=== PATIENT | female | born 1960 | race Caucasian/White ===

== ENCOUNTER → 2016-09-16 | Outpatient (CLI) | payer MEDICARE, BC ==
--- NOTE | 2016-09-18 07:06 | MM ---
Reason for exam: screening (asymptomatic). Last mammogram was performed 2 years and 6 months ago. History: Patient is postmenopausal and is nulliparous. Family history of breast cancer in 2 maternal aunts at age 80. Benign excisional biopsy of the left breast, 1995. Took hormonal contraceptives for 21 years 10 months. Taking estrogen beginning at age 47. Physical Findings: A clinical breast exam by your physician is recommended on an annual basis and results should be correlated with mammographic findings. MG 3D Screening Mammo W/Cad Bilateral CC and MLO view(s) were taken. Prior study comparison: March 30, 2014, bilateral MG screening mammo w CAD. February 12, 2013, bilateral digital screening mammo w/CAD. There are scattered fibroglandular densities. No significant changes when compared with prior studies. ASSESSMENT: Negative, BI-RAD 1 RECOMMENDATION: Routine screening mammogram of both breasts in 1 year. Manage on a clinical basis with regard to patient sensation of left breast fullness.
== END | disposition home or self-care (01) ==
LOC: RADMAMWWP 14:48
PROVIDERS: ATTEND Family Medicine
DX: Z12.31 Encounter for screening mammogram for malignant neoplasm of breast (principal)
CPT/HCPCS: 77063; G0202

== ENCOUNTER 2017-08-29 06:44 | Inpatient (IN) | payer MEDICARE, BC ==
[2017-08-29 06:50] VITALS: RESP 18
[2017-08-29] MEDS ORDERED: PIPERACILLIN-TAZOBACTAM 3.375 GM in DEXTROSE/WATER 1 50ML.BAG IVPB STA (07:52)
[2017-08-29] MEDS ORDERED: metroNIDAZOLE-NS PMX 500 MG in SALINE 1 100ML.BAG IVPB STA (07:54)
[2017-08-29 07:55] LABS: Basophils % (A) 0 %; Eosinophils # (A) 0.1 k/uL (0-0.7); Eosinophils % (A) 1 %; HGB 14.4 gm/dL (11.4-16.0); Lymphocytes # (A) 1.5 k/uL (1.0-4.8); Lymphocytes % (A) 12 %; MCH 29.8 pg (25.0-35.0); MCHC 35.2 g/dL (31.0-37.0); MCV 84.6 fL (80.0-100.0); Mean Platelet Volume 6.9; Monocytes # (A) 1.1 k/uL (0-1.0); Monocytes % (A) 9 %; Neutrophils # (A) 9.7 k/uL (1.3-7.7); Neutrophils % (A) 77 %; Platelet Count 348 k/uL (150-450); RBC 4.85 m/uL (3.80-5.40); RDW 12.9 % (11.5-15.5); WBC 12.6 k/uL (3.8-10.6)
[2017-08-29] MEDS ORDERED: MORPHINE SULFATE 2 MG/ML SYRINGE IVP STA (07:55)
[2017-08-29] MEDS ORDERED: ONDANSETRON 4 MG/2 ML VIAL IVP STA (07:55)
[2017-08-29 08:10] LABS: Appearance,Urine Clear (Clear); Bilirubin,Urine Negative (Negative); Blood,Urine Negative (Negative); Color,Urine Yellow; Glucose,Urine (UA) Negative (Negative); Ketones,Urine Negative (Negative); Leukocyte Esterase,Urine Small (Negative); Mucus,Urine Few /hpf; Nitrite,Urine Negative (Negative); PH, Urine 6.5 (5.0-8.0); Protein,Urine Trace (Negative); RBC,Urine 1 /hpf (0-5); Specific Gravity,Urine 1.016 (1.001-1.035); Squamous Epithelial Cell,Urine 4 /hpf (0-4); Urobilinogen,Urine <2.0 mg/dL (<2.0); WBC,Urine 7 /hpf (0-5)
[2017-08-29 08:11] LABS: ALT 37 U/L (9-52); AST 25 U/L (14-36); Alkaline Phosphatase 81 U/L (38-126); Amylase 39 U/L (30-110); Anion Gap 11 mmol/L; Blood Urea Nitrogen 10 mg/dL (7-17); Carbon Dioxide 27 mmol/L (22-30); Chloride 99 mmol/L (98-107); Glucose 103 mg/dL (74-99); Lipase 26 U/L (23-300); Sodium 137 mmol/L (137-145); Total Bilirubin 0.6 mg/dL (0.2-1.3); Total Protein 6.2 g/dL (6.3-8.2)
[2017-08-29 08:35] LABS: C Reactive Protein 27.2 mg/L (<10.0)
--- NOTE | 2017-08-29 10:32 | CT ---
EXAMINATION TYPE: CT abdomen pelvis w con DATE OF EXAM: 08/29/2017 COMPARISON: 10/24/2015 HISTORY: LLQ pain, history of diverticulitis CT DLP: 1639 mGycm Automated exposure control for dose reduction was used. CONTRAST: CT scan of the abdomen pelvis is performed with IV Contrast, patient injected with 100 mL of Isovue 3 00. FINDINGS- LUNG BASES-lung bases demonstrate linear subsegmental changes most typical atelectasis. Postsurgical change in the mediastinum noted.. LIVER/GB-correlate for mild hepatic steatosis. There is mild central biliary dilation greater within the left lobe. Findings likely secondary to postcholecystectomy changes. PANCREAS- No gross abnormality is seen. SPLEEN- No gross abnormality is seen. Accessory spleen noted. ADRENALS- No gross abnormality is seen. KIDNEYS/BLADDER- no hydronephrosis nephrolithiasis or renal mass. There does appear to be a left rhiannon l vein stent. Cannot exclude a stenosis involving the proximal margin of the stent. This would requir e ultrasound evaluation. Finding is similar to the prior exam. Reduced enhancement proximally could b e related to contrast mixing and phase of imaging. BOWEL-there are few prominent small bowel loops in the upper abdomen. However, there appears to be wa ll thickening involving the sigmoid colon. Small amount of fluid and induration of the adjacent fat a long the left pelvic sidewall. Suspect the findings are most likely in the basis of acute diverticuli tis. A mucosal lesion or mass in the colon is not excluded and could be evaluated direct visualizatio n when clinically appropriate.. LYMPH NODES- No greater than 1cm abdominal or pelvic lymph nodes are appreciated. Shotty lymphadenop athy noted. OSSEOUS STRUCTURES-hypertrophic and degenerative change of the spine noted.. OTHER- aorta of normal caliber with atherosclerotic changes. IMPRESSION- 1. There is wall thickening involving the sigmoid colon with pericolonic inflammatory change to small amount of fluid along the left pelvic sidewall. Findings are most typical of acute diverticulitis. C orrelate clinically to exclude mucosal lesion. 2. A few prominent small bowel loops likely related to localized ileus secondary to the inflammatory changes related to the suspected acute diverticulitis. 3. Left renal stent is stable in position relative the previous exam. Reduced enhancement along the p roximal margin also is stable. This may be related to phase of imaging rather than occlusion but shou ld be correlated clinically.
--- NOTE | 2017-08-29 10:32 | ED ---
General Adult HPI - General Chief complaint: Chest Pain Stated complaint: chest pain, diverticulitis Time Seen by Provider: 08/29/17 07:41 Source: patient Mode of arrival: ambulatory Limitations: no limitations - History of Present Illness Initial comments: 56 years old female with a history of diverticulitis he had left lower quadrant pain going on for 2-3 days she seen her family doctor and was put on a Bactrim and Augmentin that didn't quite help her him a she felt warm she's not sure if she had a fever right now she denies any fever no chills has nausea no vomiting. Is quite in quite excruciating is 10 over 10. Review of system is unremarkable otherwise - Related Data Home Medications Medication Instructions Recorded Confirmed EPINEPHrine (Auto Inject) [Epipen] 0.3 mg IM ONCE PRN 07/14/13 08/29/17 Famotidine 20 mg PO QAM 07/14/13 08/29/17 LORazepam [Ativan] 0.25 mg PO TID PRN 07/14/13 08/29/17 Liothyronine Sodium 25 mcg PO QAM 07/14/13 08/29/17 traMADol HCl [Ultram] 50 mg PO TID PRN 07/14/13 08/29/17 valACYclovir [Valtrex] 500 mg PO DAILY 07/14/13 08/29/17 Cetirizine HCl [Zyrtec] 10 mg PO HS 07/15/13 08/29/17 Albuterol Sulfate [Proair Hfa] 2 puff INHALATION RT-QID PRN 10/23/15 08/29/17 Aspirin EC [Ecotrin Low Dose] 81 mg PO 10/23/15 08/29/17 Azelastine HCl [Astepro] 1 spray EA NOSTRIL BID PRN 10/23/15 08/29/17 Dicyclomine [Bentyl] 10 mg PO TID PRN 10/23/15 08/29/17 Docusate [Colace] 100 mg PO HS 10/23/15 08/29/17 Estriol Vaginal Compounded Cream 1 applic VAGINAL SUWE 10/23/15 08/29/17 Fluconazole [Diflucan] 100 mg PO DAILY PRN 10/23/15 08/29/17 Lisdexamfetamine Dimesylate 30 mg PO QAM 10/23/15 08/29/17 [Vyvanse] Loratadine [Claritin] 10 mg PO MOWEFR 10/23/15 08/29/17 Minocycline HCl [Minocin] 100 mg PO MOWEFR 10/23/15 08/29/17 Psyllium Husk 100% [Metamucil] 6 gm PO HS 10/23/15 08/29/17 Allergies Allergy/AdvReac Type Severity Reaction Status Date / Time Quinolones AdvReac Tendinopath Verified 08/29/17 09:23 y STEROIDS AdvReac Suppressed Uncoded 08/29/17 06:50 immune system due to lyme disease Review of Systems ROS Statement: Those systems with pertinent positive or pertinent negative responses have been documented in the HPI. ROS Other: All systems not noted in ROS Statement are negative. Past Medical History Additional Past Medical History / Comment(s): diverticulitis, lyme disease pacemaker ra, depression anxiety, adrenal fatigue myalgias carditis with sinus node dysfunction Neuropathy bilateral hands and bilateral feet and left side of face. History of Any Multi-Drug Resistant Organisms: None Reported Past Surgical History: Breast Surgery, Cholecystectomy, Ear Surgery Additional Past Surgical History / Comment(s): pacemaker, stapes implant in left ear , ovarian cyst, abscess in belly button, thyroidectomy, tummy tuck, renal stent left side Past Anesthesia/Blood Transfusion Reactions: Postoperative Nausea & Vomiting ( PONV) Past Psychological History: Anxiety, Depression Smoking Status: Never smoker Past Alcohol Use History: Occasional Past Drug Use History: None Reported - Past Family History Father Family Medical History: Cancer, CVA/TIA, Prostate Disorder Additional Family Medical History / Comment(s): Prostate CA, Hip replacement General Exam - General Exam Comments Initial Comments: General: The patient is awake and alert, in no distress, and does not appear acutely ill. Skin: Skin is warm and dry and no rashes or lesions are noted. Eye: Pupils are equal, round and reactive to light, extra-ocular movements are intact; there is normal conjunctiva bilaterally. Ears, nose, mouth and throat: There are moist mucous membranes and no oral lesions. Neck: The neck is supple, there is no tenderness or JVD. Cardiovascular: There is a regular rate and rhythm. No murmur, rub or gallop is appreciated. Respiratory: To auscultation bilateral, no wheezing no rhonchi no distress respiratory goldsmith noticed Gastrointestinal: Very tender in the left lower quadrant area exam consistent with acute diverticulitis. Back: There is no tenderness to palpation in the midline. There is no obvious deformity. Musculoskeletal: Normal ROM, no tenderness, There is no pedal edema. There is no calf tenderness or swelling. No cords were appreciated. Neurological: CN II-XII intact, Cranial nerves III through XII are intact. There are no obvious motor or sensory deficits. Coordination appears grossly intact. Speech is normal. Psychiatric: Cooperative, appropriate mood & affect, normal judgment. Limitations: no limitations Course Vital Signs 08/29/17 08/29/17 06:47 09:10 Temperature 98.2 F Pulse Rate 80 69 Respiratory 18 18 Rate Blood Pressure 127/67 145/77 O2 Sat by Pulse [address] abdomen and pelvis is still pending disposition be done as soon as CT report is available, finally CAT scan report is available and it does confirm acute diverticulitis patient would be admitted to Dr. Barajas service and patient preferred to see Dr. Cervantes EKG Findings - EKG Comments: EKG Findings:: She is atrial paced rhythm no obvious abnormality noticed ventricular rate is 87 FL interval is 1 H2 QRS duration is 84 QT/QTc is 356/420 Medical Decision Making - Lab Data Result diagrams: 08/29/17 07:04 08/29/17 07:04 Lab Results 08/29/17 08/29/17 08/29/17 Range/Units 07:04 07:04 07:04 WBC 12.6 H (3.8-10.6) k/uL RBC 4.85 (3.80-5.40) m/uL Hgb 14.4 (11.4-16.0) gm/dL Hct 41.0 (34.0-46.0) % MCV 84.6 (80.0-100.0) fL MCH 29.8 (25.0-35.0) pg MCHC 35.2 (31.0-37.0) g/dL RDW 12.9 (11.5-15.5) % Plt Count 348 (150-450) k/uL Neutrophils % 77 % Lymphocytes % 12 % Monocytes % 9 % Eosinophils % 1 % Basophils % 0 % Neutrophils # 9.7 H (1.3-7.7) k/uL Lymphocytes # 1.5 (1.0-4.8) k/uL Monocytes # 1.1 H (0-1.0) k/uL Eosinophils # 0.1 (0-0.7) k/uL Basophils # 0.0 (0-0.2) k/uL Sodium 137 (137-145) mmol/L Potassium 4.0 (3.5-5.1) mmol/L Chloride 99 (98-107) mmol/L Carbon Dioxide 27 (22-30) mmol/L Anion Gap 11 mmol/L BUN 10 (7-17) mg/dL Creatinine 0.66 (0.52-1.04) mg/dL Est GFR (CKD-EPI)AfAm >90 (>60 ml/min/1.73 sqM) Est GFR (CKD-EPI)NonAf >90 (>60 ml/min/1.73 sqM) Glucose 103 H (74-99) mg/dL Calcium 9.0 (8.4-10.2) mg/dL Total Bilirubin 0.6 (0.2-1.3) mg/dL AST 25 (14-36) U/L ALT 37 (9-52) U/L Alkaline Phosphatase 81 (38-126) U/L C-Reactive Protein 27.2 H (<10.0) mg/L Total Protein 6.2 L (6.3-8.2) g/dL Albumin 4.0 (3.5-5.0) g/dL Amylase 39 (30-110) U/L Lipase 26 (23-300) U/L Urine Color Yellow Urine Appearance Clear (Clear) Urine pH 6.5 (5.0-8.0) Ur Specific [place] 1.016 (1.001-1.035) Urine Protein Trace H (Negative) Urine Glucose (UA) Negative (Negative) Urine Ketones Negative (Negative) Urine Blood Negative (Negative) Urine Nitrite Negative (Negative) Urine Bilirubin Negative (Negative) Urine Urobilinogen <2.0 (<2.0) mg/dL Ur Leukocyte Esterase Small H (Negative) Urine RBC 1 (0-5) /hpf Urine WBC 7 H (0-5) /hpf Ur Squamous Epith Cells 4 (0-4) /hpf Urine Mucus Few H (None) /hpf Disposition Clinical Impression: Acute diverticulitis Disposition: ADMITTED IP TO THIS [facility] Condition: Good Referrals: Nonstaff,Physician [Primary Care Provider] - 1-2 days
[2017-08-29] MEDS ORDERED: HYDROmorphone 0.5 MG/0.5 ML SYRINGE IVP PRN (10:56)
[2017-08-29] MEDS ORDERED: NALOXONE 0.4 MG/ML 1 ML VIAL IV PRN (10:56)
[2017-08-29] MEDS ORDERED: traMADol 50 MG TAB PO PRN (11:15)
[2017-08-29] MEDS ORDERED: AZELASTINE 137MCG/SPRAY EA NOSTRIL PRN (11:15)
[2017-08-29] MEDS ORDERED: LORazepam 0.5 MG TAB PO PRN (11:15)
[2017-08-29] MEDS ORDERED: ALBUTEROL NEBULIZED 2.5 MG/3 ML INHALATION PRN (11:15)
[2017-08-29] MEDS ORDERED: DICYCLOMINE 10 MG CAP PO PRN (11:15)
[2017-08-29] MEDS ORDERED: LORATADINE 10 MG TAB PO SCH ×2 (11:15→21:00)
[2017-08-29] MEDS ORDERED: FLUCONAZOLE 100 MG TAB PO PRN (11:15)
[2017-08-29] MEDS ORDERED: MINOCYCLINE 50 MG CAP PO SCH (11:45)
[2017-08-29] MEDS: MORPHINE SULFATE 2 MG/ML SYRINGE IVP PRN ×2 (12:47→17:55)
--- NOTE | 2017-08-29 13:26 | P.GSCN ---
<Awa Cabrera - Last Filed: 08/29/17 12:58> History of Present Illness Consult date: 08/29/17 History of present illness: 56-year-old female presented to the emergency room with a chief complaint of left lower quadrant abdominal pain "I have a history of diverticulitis this was the worst flareup with increased left lower quadrant abdominal pain that I have ever experienced". Patient reports that she saw a colon specialist at [facility] that she is been following for her diverticulosis disease for the last several years . She states that she's been told repeatedly that she needs to have bowel surgery to address her diverticulitis flareups . According to the patient [address] farris colon Specialist apparently attempted to do a colonoscopy but it was incomplete due to the patient "dropped my blood pressure became dizzy and lightheaded" patient states she has been told that she would need cardiac clearance and Lyme disease specialist to see her prior to having any surgical procedures done. Patient states she was diagnosed 10 years ago in [place] with Lyme disease has been following line disease specialist [facility]. According to the patient the colon specialist at [facility] has been working the patient up in anticipation of doing surgery for her acute diverticulitis patient states the colon specialist that [facility] told the patient if she had a flareup she was to take Augmentin and Bentyl for a flareup. Patient states she was seen in [address] Cervantes for an abscess on her belly button". According to the patient last colonoscopy was done January [address] Robson Beltran polypectomy. Patient does have a past medical history Lyme disease which resulted in cardiac disease, depression anxiety disorder, pacemaker, neuropathy, diverticular disease with reoccurring acute on chronic sigmoid diverticulitis, and chronic pain. Prior left renal stent Patient describes the pain as a very sharp localized left lower quadrant abdominal pain came on suddenly. Computed tomography scan of the abdomen pelvis obtained in the emergency room he reviewing the medical records indicate wall thickening involving the sigmoid colon small amount of fluid findings are typical of acute diverticulitis. White count on admission 12.6. AST ALT and total bili not elevated. Electrolytes within normal limits. Hemoglobin 14.4. Afebrile temp is 98.7 Review of Systems Essentially unremarkable except as mentioned in the present illness Past Medical History Additional Past Medical History / Comment(s): diverticulitis, lyme disease pacemaker ra, depression anxiety, adrenal fatigue myalgias carditis with sinus node dysfunction Neuropathy bilateral hands and bilateral feet and left side of face. History of Any Multi-Drug Resistant Organisms: None Reported Past Surgical History: Breast Surgery, Cholecystectomy, Ear Surgery Additional Past Surgical History / Comment(s): pacemaker, stapes implant in left ear , ovarian cyst, abscess in belly button, thyroidectomy, tummy tuck, renal stent left side Past Anesthesia/Blood Transfusion Reactions: Postoperative Nausea & Vomiting ( PONV) Past Psychological History: Anxiety, Depression Smoking Status: Never smoker Past Alcohol Use History: Occasional Past Drug Use History: None Reported - Past Family History Father Family Medical History: Cancer, CVA/TIA, Prostate Disorder Additional Family Medical History / Comment(s): Prostate CA, Hip replacement Medications and Allergies Home Medications Medication Instructions Recorded Confirmed Type EPINEPHrine (Auto Inject) [Epipen] 0.3 mg IM ONCE PRN 07/14/13 08/29/17 History Famotidine 20 mg PO QAM 07/14/13 08/29/17 History LORazepam [Ativan] 0.25 mg PO TID PRN 07/14/13 08/29/17 History Liothyronine Sodium 25 mcg PO QAM 07/14/13 08/29/17 History traMADol HCl [Ultram] 50 mg PO TID PRN 07/14/13 08/29/17 History valACYclovir [Valtrex] 500 mg PO DAILY 07/14/13 08/29/17 History Cetirizine HCl [Zyrtec] 10 mg PO HS 07/15/13 08/29/17 History Albuterol Sulfate [Proair Hfa] 2 puff INHALATION RT-QID PRN 10/23/15 08/29/17 History Aspirin EC [Ecotrin Low Dose] 81 mg PO HS 10/23/15 08/29/17 History Azelastine HCl [Astepro] 1 spray EA NOSTRIL BID PRN 10/23/15 08/29/17 History Dicyclomine [Bentyl] 10 mg PO TID PRN 10/23/15 08/29/17 History Docusate [Colace] 100 mg PO HS 10/23/15 08/29/17 History Estriol Vaginal Compounded Cream 1 applic VAGINAL SUWE 10/23/15 08/29/17 History Fluconazole [Diflucan] 100 mg PO DAILY PRN 10/23/15 08/29/17 History Lisdexamfetamine Dimesylate 30 mg PO QAM 10/23/15 08/29/17 History [Vyvanse] Loratadine [Claritin] 10 mg PO MOWEFR 10/23/15 08/29/17 History Minocycline HCl [Minocin] 100 mg PO MOWEFR 10/23/15 08/29/17 History Psyllium Husk 100% [Metamucil] 6 gm PO HS 10/23/15 08/29/17 History Allergies Allergy/AdvReac Type Severity Reaction Status Date / Time Quinolones AdvReac Tendinopath Verified 08/29/17 09:23 y STEROIDS AdvReac Suppressed Uncoded 08/29/17 06:50 immune system due to lyme disease Surgical - Exam Vital Signs Temp Pulse Resp BP Pulse Ox 98.2 F 80 18 127/67 98 08/29/17 06:47 08/29/17 06:47 08/29/17 06:47 08/29/17 06:47 08/29/17 06:47 GENERAL APPEARANCE: 56-year-old female teary-eyed states anxious most of her health care for her colon Diverticulosis disease has been at [facility] reports pain medication has decreased the left lower quadrant abdominal pain but continues to persist VITAL SIGNS: HEENT: Head is normocephalic and atraumatic. Pupils are equal and reactive. The nares are patent. Oropharynx is clear without lesions. NECK: Supple without lymphadenopathy. Traches midline. HEART: S1, S2. Regular rate and rhythm. No murmur noted denying chest pain heart rate in the 70s to 80s LUNGS: No crackles or wheezes are heard. Adequate air movement bilaterally room air sats 9900% ABDOMEN: Soft, diffuse tenderness left lower quadrant nausea sensation no active emesis nondistended with good bowel sounds. No peritoneal signs. No palpable organomegaly or masses. EXTREMITIES: Normal skin color and turgor. No cyanosis, rash, ulceration, clubbing or edema. Radial pedal pulses are 2/4 bilaterally. NEUROLOGICAL: No focal deficits. Strength and sensation are grossly intact. Results - Labs 08/29/17 07:04 08/29/17 07:04 Abnormal Lab Results - Last 24 Hours (Table) 0608/29/17 08/29/17 Range/Units 07:04 07:04 07:04 WBC 12.6 H (3.8-10.6) k/uL Neutrophils # 9.7 H (1.3-7.7) k/uL Monocytes # 1.1 H (0-1.0) k/uL Glucose 103 H (74-99) mg/dL C-Reactive Protein 27.2 H (<10.0) mg/L Total Protein 6.2 L (6.3-8.2) g/dL Urine Protein Trace H (Negative) Ur Leukocyte Esterase Small H (Negative) Urine WBC 7 H (0-5) /hpf Urine Mucus Few H (None) /hpf Diabetes panel 08/29/17 Range/Units 07:04 Sodium 137 (137-145) mmol/L Potassium 4.0 (3.5-5.1) mmol/L Chloride 99 (98-107) mmol/L Carbon Dioxide 27 (22-30) mmol/L BUN 10 (7-17) mg/dL Creatinine 0.66 (0.52-1.04) mg/dL Glucose 103 H (74-99) mg/dL Calcium 9.0 (8.4-10.2) mg/dL AST 25 (14-36) U/L ALT 37 (9-52) U/L Alkaline Phosphatase 81 (38-126) U/L Total Protein 6.2 L (6.3-8.2) g/dL Albumin 4.0 (3.5-5.0) g/dL Calcium panel 08/29/17 Range/Units 07:04 Calcium 9.0 (8.4-10.2) mg/dL Albumin 4.0 (3.5-5.0) g/dL Pituitary panel 08/29/17 Range/Units 07:04 Sodium 137 (137-145) mmol/L Potassium 4.0 (3.5-5.1) mmol/L Chloride 99 (98-107) mmol/L Carbon Dioxide 27 (22-30) mmol/L BUN 10 (7-17) mg/dL Creatinine 0.66 (0.52-1.04) mg/dL Glucose 103 H (74-99) mg/dL Calcium 9.0 (8.4-10.2) mg/dL Adrenal panel 06/22/18 Range/Units 07:04 Sodium 137 (137-145) mmol/L Potassium 4.0 (3.5-5.1) mmol/L Chloride 99 (98-107) mmol/L Carbon Dioxide 27 (22-30) mmol/L BUN 10 (7-17) mg/dL Creatinine 0.66 (0.52-1.04) mg/dL Glucose 103 H (74-99) mg/dL Calcium 9.0 (8.4-10.2) mg/dL Total Bilirubin 0.6 (0.2-1.3) mg/dL AST 25 (14-36) U/L ALT 37 (9-52) U/L Alkaline Phosphatase 81 (38-126) U/L Total Protein 6.2 L (6.3-8.2) g/dL Albumin 4.0 (3.5-5.0) g/dL Assessment and Plan Assessment: Impression Present on admission symptomatic left lower quadrant abdominal pain suspect due to acute diverticulitis exacerbation Anxiety depressive disorder History of Lyme's disease diagnosed 10 years prior resulting in cardiac disease Acute on chronic recurrent sigmoid diverticulitis Chronic Lyme disease Present on admission leukocytosis suspect reactive Computed tomography scan abdomen and pelvis report reviewed indicate wall thickening involving the sigmoid colon suspect likely due to acute diverticulitis Plan Recommend the patient be transferred to [facility] higher level of care needed to address acute diverticulitis in a patient with Lyme disease resulting in cardiac issues Pain control IV Flagyl as ordered IV hydration Defer to the attending to arrange transfer to the tertiary center as appropriate case assembler to pursue transfer Surgical consultation note dictated for Dr. Asher The above impression and plan of care have been discussed and directed by signing physician. Awa Cabrera nurse practitioner acting as scribe for signing physician. <Rhonda Asher - Last Filed: 08/29/17 21:40> Past Medical History - Past Family History Father Family Medical History: Cancer, CVA/TIA, Prostate Disorder Additional Family Medical History / Comment(s): Prostate CA, Hip replacement Mother Family Medical History: Cancer Additional Family Medical History / Comment(s): Mother has multiple myeloma and is in hospice care at home. Surgical - Exam Vital Signs Temp Pulse Resp BP Pulse Ox 98.2 F 80 18 127/67 98 08/29/17 06:47 08/29/17 06:47 08/29/17 06:47 08/29/17 06:47 08/29/17 06:47 Results - Labs 08/29/17 07:04 08/29/17 07:04 Abnormal Lab Results - Last 24 Hours (Table) 08/29/17 08/29/17 08/29/17 Range/Units 07:04 07:04 07:04 WBC 12.6 H (3.8-10.6) k/uL Neutrophils # 9.7 H (1.3-7.7) k/uL Monocytes # 1.1 H (0-1.0) k/uL Glucose 103 H (74-99) mg/dL C-Reactive Protein 27.2 H (<10.0) mg/L Total Protein 6.2 L (6.3-8.2) g/dL Urine Protein Trace H (Negative) Ur Leukocyte Esterase Small H (Negative) Urine WBC 7 H (0-5) /hpf Urine Mucus Few H (None) /hpf Diabetes panel 08/29/17 Range/Units 07:04 Sodium 137 (137-145) mmol/L Potassium 4.0 (3.5-5.1) mmol/L Chloride 99 (98-107) mmol/L Carbon Dioxide 27 (22-30) mmol/L BUN 10 (7-17) mg/dL Creatinine 0.66 (0.52-1.04) mg/dL Glucose 103 H (74-99) mg/dL Calcium 9.0 (8.4-10.2) mg/dL AST 25 (14-36) U/L ALT 37 (9-52) U/L Alkaline Phosphatase 81 (38-126) U/L Total Protein 6.2 L (6.3-8.2) g/dL Albumin 4.0 (3.5-5.0) g/dL Calcium panel 08/29/17 Range/Units 07:04 Calcium 9.0 (8.4-10.2) mg/dL Albumin 4.0 (3.5-5.0) g/dL Pituitary panel 08/29/17 Range/Units 07:04 Sodium 137 (137-145) mmol/L Potassium 4.0 (3.5-5.1) mmol/L Chloride 99 (98-107) mmol/L Carbon Dioxide 27 (22-30) mmol/L BUN 10 (7-17) mg/dL Creatinine 0.66 (0.52-1.04) mg/dL Glucose 103 H (74-99) mg/dL Calcium 9.0 (8.4-10.2) mg/dL Adrenal panel 08/29/17 Range/Units 07:04 Sodium 137 (137-145) mmol/L Potassium 4.0 (3.5-5.1) mmol/L Chloride 99 (98-107) mmol/L Carbon Dioxide 27 (22-30) mmol/L BUN 10 (7-17) mg/dL Creatinine 0.66 (0.52-1.04) mg/dL Glucose 103 H (74-99) mg/dL Calcium 9.0 (8.4-10.2) mg/dL Total Bilirubin 0.6 (0.2-1.3) mg/dL AST 25 (14-36) U/L ALT 37 (9-52) U/L Alkaline Phosphatase 81 (38-126) U/L Total Protein 6.2 L (6.3-8.2) g/dL Albumin 4.0 (3.5-5.0) g/dL
[2017-08-29 14:49] VITALS: BMI 29.0
[2017-08-29 14:54] VITALS: BP 126/75; PULSE 86; TEMP 97.7
[2017-08-29] MEDS ORDERED: metroNIDAZOLE-NS PMX 500 MG in SALINE 1 100ML.BAG IVPB SCH (16:00)
[2017-08-29] MEDS ORDERED: ASPIRIN 81 MG PO SCH (21:00)
[2017-08-29] MEDS ORDERED: PSYLLIUM HUSK 100% 6 GM PACKET PO SCH (21:00)
[2017-08-29] MEDS ORDERED: DOCUSATE 100 MG CAP PO SCH (21:00)
--- NOTE | 2017-08-29 22:14 | P.HPIM ---
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 "I have a history of diverticulitis this was the worst flareup with increased left lower quadrant abdominal pain that I have ever experienced". Patient reports that she saw a colon specialist at [facility] that she is been following for her diverticulosis disease for the last several years . She states that she's been told repeatedly that she needs to have bowel surgery to address her diverticulitis flareups . According to the patient [address] farris colon Specialist apparently attempted to do a colonoscopy but it was incomplete due to the patient "dropped my blood pressure became dizzy and lightheaded" patient states she has been told that she would need cardiac clearance and Lyme disease specialist to see her prior to having any surgical procedures done. Patient states she was diagnosed 10 years ago in [place] with Lyme disease has been following line disease specialist [facility]. According to the patient the colon specialist at [facility] has been working the patient up in anticipation of doing surgery for her acute diverticulitis patient states the colon specialist that [facility] told the patient if she had a flareup she was to take Augmentin and Bentyl for a flareup. Patient states she was seen in [address] Cervantes for an abscess on her belly button". According to the patient last colonoscopy was done January [address] Robson Beltran polypectomy. Computed tomography scan of the abdomen pelvis obtained in the emergency room he reviewing the medical records indicate wall thickening involving the sigmoid colon small amount of fluid findings are typical of acute diverticulitis. White count on admission 12.6. AST ALT and total bili not elevated. Electrolytes within normal limits. Hemoglobin 14.4. Afebrile temp is 98.7 Review of Systems Constitutional: Patient denies any fever or chills . No generalized weakness or weight loss. Abdomen: Patient denied nausea vomiting and diarrhea it patient does have left lower quadrant abdominal pain. Cardiovascular: Patient denies any chest pain or short of breath no palpitations. Respiratory: patient denied any cough is from production. No shortness of breath Neurologic: Patient denied any numbness or tingling headache. Musculoskeletal: Patient denies any complaints of joint swelling or deformity. Skin: Negative Psychiatric: Negative Endocrine: No heat or cold intolerance. No recent weight gain. Genitourinary: No dysuria or hematuria. All other 14 point ROS negative except the above Past Medical History Additional Past Medical History / Comment(s): diverticulitis, lyme disease pacemaker ra, depression anxiety, adrenal fatigue myalgias carditis with sinus node dysfunction Neuropathy bilateral hands and bilateral feet and left side of face. History of Any Multi-Drug Resistant Organisms: None Reported Past Surgical History: Breast Surgery, Cholecystectomy, Ear Surgery Additional Past Surgical History / Comment(s): pacemaker, stapes implant in left ear , ovarian cyst, abscess in belly button, thyroidectomy, tummy tuck, renal stent left side Past Anesthesia/Blood Transfusion Reactions: Postoperative Nausea & Vomiting ( PONV) Past Psychological History: Anxiety, Depression Smoking Status: Never smoker Past Alcohol Use History: Occasional Past Drug Use History: None Reported - Past Family History Father Family Medical History: Cancer, CVA/TIA, Prostate Disorder Additional Family Medical History / Comment(s): Prostate CA, Hip replacement Mother Family Medical History: Cancer Additional Family Medical History / Comment(s): Mother has multiple myeloma and is in hospice care at home. Medications and Allergies Home Medications Medication Instructions Recorded Confirmed Type EPINEPHrine (Auto Inject) [Epipen] 0.3 mg IM ONCE PRN 07/14/13 08/29/17 History Famotidine 20 mg PO QAM 07/14/13 08/29/17 History LORazepam [Ativan] 0.25 mg PO TID PRN 07/14/13 08/29/17 History Liothyronine Sodium 25 mcg PO QAM 07/14/13 08/29/17 History traMADol HCl [Ultram] 50 mg PO TID PRN 07/14/13 08/29/17 History valACYclovir [Valtrex] 500 mg PO DAILY 07/14/13 08/29/17 History Cetirizine HCl [Zyrtec] 10 mg PO HS 07/15/13 08/29/17 History Albuterol Sulfate [Proair Hfa] 2 puff INHALATION RT-QID PRN 10/23/15 08/29/17 History Aspirin EC [Ecotrin Low Dose] 81 mg PO HS 10/23/15 08/29/17 History Azelastine HCl [Astepro] 1 spray EA NOSTRIL BID PRN 10/23/15 08/29/17 History Dicyclomine [Bentyl] 10 mg PO TID PRN 10/23/15 08/29/17 History Docusate [Colace] 100 mg PO HS 10/23/15 08/29/17 History Estriol Vaginal Compounded Cream 1 applic VAGINAL SUWE 10/23/15 08/29/17 History Fluconazole [Diflucan] 100 mg PO DAILY PRN 10/23/15 08/29/17 History Lisdexamfetamine Dimesylate 30 mg PO QAM 10/23/15 08/29/17 History [Vyvanse] Loratadine [Claritin] 10 mg PO MOWEFR 10/23/15 08/29/17 History Minocycline HCl [Minocin] 100 mg PO MOWEFR 10/23/15 08/29/17 History Psyllium Husk 100% [Metamucil] 6 gm PO HS 10/23/15 08/29/17 History Allergies Allergy/AdvReac Type Severity Reaction Status Date / Time Quinolones AdvReac Tendinopath Verified 08/29/17 09:23 y STEROIDS AdvReac Suppressed Uncoded 08/29/17 06:50 immune system due to lyme disease Physical Exam Vitals: Vital Signs Temp Pulse Pulse Resp BP BP Pulse Ox 08/29/17 14:13 97.7 F 86 18 126/75 98 08/29/17 12:04 97.9 F 90 18 121/68 100 08/29/17 11:49 98.7 F 81 18 139/61 100 08/29/17 09:10 69 18 145/77 99 08/29/17 06:47 98.2 F 80 18 127/67 98 Intake and Output 08/28/17 08/29/17 08/29/17 22:59 06:59 14:59 Intake Total 480 Balance 480 Intake: Oral 480 Other: # Voids 1 # Bowel Movements 0 Weight 81.647 kg 81.647 kg PHYSICAL EXAMINATION: Patient is lying in the bed comfortably, mild distress, awake alert and oriented.. HEENT: Normocephalic. Neck is supple. Pupils reactive. Nostrils clear. Oral cavity is moist. Ears reveal no drainage. Neck reveals no JVD, carotid bruits, or thyromegaly. CHEST EXAMINATION: Trachea is central. Symmetrical expansion. Lung ackerman clear to auscultation and percussion. CARDIAC: Normal S1, S2 with no gallops. No murmurs ABDOMEN: Soft. Left lower quadrant abdominal tenderness. No guarding no rigidity. Bowel sounds normal. No organomegaly. No abdominal bruits. Extremities: reveal no edema. No clubbing or cyanosis Neurologically awake, alert, oriented x3 with well-coordinated movements. No focal deficits noted Skin: No rash or skin lesions. Psychiatric: Coperative. Nonsuicidal Musculoskeletal: No joint swelling or deformity. Normal range of motion. Results CBC & Chem 7: 08/29/17 07:04 08/29/17 07:04 Labs: Abnormal Lab Results - Last 24 Hours (Table) 08/29/17 08/29/17 08/29/17 Range/Units 07:04 07:04 07:04 WBC 12.6 H (3.8-10.6) k/uL Neutrophils # 9.7 H (1.3-7.7) k/uL Monocytes # 1.1 H (0-1.0) k/uL Glucose 103 H (74-99) mg/dL C-Reactive Protein 27.2 H (<10.0) mg/L Total Protein 6.2 L (6.3-8.2) g/dL Urine Protein Trace H (Negative) Ur Leukocyte Esterase Small H (Negative) Urine WBC 7 H (0-5) /hpf Urine Mucus Few H (None) /hpf Thrombosis Risk Factor Assmnt - DVT/VTE Prophylaxis DVT/VTE Prophylaxis: Pharmacologic Prophylaxis ordered - Choose All That Apply Any of the Below Risk Factors Present?: Yes Each Factor Represents 1 point: Age 41-60 years, Obesity (BMI >25) Other Risk Factors: No Other congenital or acquired thrombophilia - If yes, enter type in comment: No Thrombosis Risk Factor Assessment Total Risk Factor Score: 2 Thrombosis Risk Factor Assessment Level: Low Risk Assessment and Plan Assessment: Acute diverticulitis with complaints of left lower quadrant pain Previous history of colonoscopy with polypectomy and abscess in the belly button I&D History of Lyme's disease/carditis with sinus node dysfunction status post pacemaker placement about 9 years ago Anxiety and depression Left renal Stent DVT prophylaxis Plan: Patient was started on antibiotics in the form of ceftriaxone and Flagyl. Continued on IV fluids and pain management. Patient was seen by general surgery and patient will need cardiology clearance prior to surgery. Patient follows with cardiology clinic at [place] for several years. Currently patient is following at [facility] and was also seen by colorectal surgery and has been planning for colonoscopy a week ago. Due to complexity of the surgery and previous abdominal surgeries patient will be transferred to tertiary care facility for further management. Discussed with [facility] transfer team who accepted the patient. Patient will be transferred once bed is available. Time with Patient: Greater than 30
--- NOTE | 2017-08-29 22:15 | P.DS ---
Providers Date of admission: 08/29/17 10:56 Expected date of discharge: 08/29/17 Attending physician: [place] Consults: 08/29/17 10:56 Consult Physician Stat Consulting Provider: Kartik Cervantes Reason/Comments: acute divertilitis Do you want consulting provider notified?: Yes Primary care physician: Physician Nonstaff Hospital Course: Discharge diagnosis Acute diverticulitis with complaints of left lower quadrant pain Previous history of colonoscopy with polypectomy and abscess in the belly button I&D History of Lyme's disease/carditis with sinus node dysfunction status post pacemaker placement about 9 years ago Anxiety and depression Left renal Stent DVT prophylaxis Hospital course Patient is a 56-year-old female with a known history of diverticulitis, 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 "I have a history of diverticulitis this was the worst flareup with increased left lower quadrant abdominal pain that I have ever experienced". Patient reports that she saw a colon specialist at [facility] that she is been following for her diverticulosis disease for the last several years . She states that she's been told repeatedly that she needs to have bowel surgery to address her diverticulitis flareups . According to the patient [address] farris colon Specialist apparently attempted to do a colonoscopy but it was incomplete due to the patient "dropped my blood pressure became dizzy and lightheaded" patient states she has been told that she would need cardiac clearance and Lyme disease specialist to see her prior to having any surgical procedures done. Patient states she was diagnosed 10 years ago in [place] with Lyme disease has been following line disease specialist [facility]. According to the patient the colon specialist at [facility] has been working the patient up in anticipation of doing surgery for her acute diverticulitis patient states the colon specialist that [facility] told the patient if she had a flareup she was to take Augmentin and Bentyl for a flareup. Patient states she was seen in [address] Cervantes for an abscess on her belly button". According to the patient last colonoscopy was done January [address] Robson Beltran polypectomy. Computed tomography scan of the abdomen pelvis obtained in the emergency room he reviewing the medical records indicate wall thickening involving the sigmoid colon small amount of fluid findings are typical of acute diverticulitis. White count on admission 12.6. AST ALT and total bili not elevated. Electrolytes within normal limits. Hemoglobin 14.4. Afebrile temp is 98.7 Plan: Patient was started on antibiotics in the form of ceftriaxone and Flagyl. Continued on IV fluids and pain management. Patient was seen by general surgery and patient will need cardiology clearance prior to surgery. Patient follows with cardiology clinic at [place] for several years. Currently patient is following at [facility] and was also seen by colorectal surgery and has been planning for colonoscopy a week ago. Due to complexity of the surgery and previous abdominal surgeries patient will be transferred to tertiary care facility for further management. Discussed with [facility] transfer team who accepted the patient. Patient was transferred to [facility] in stable condition.. Discharge physical examination was done and vitals reviewed Total time taken greater than 35 minutes including 18 minutes for counseling and coordination of care. Patient Condition at Discharge: Good Plan - Discharge Summary Discharge Rx Participant: No New Discharge Prescriptions: No Action Liothyronine Sodium 25 mcg PO QAM valACYclovir [Valtrex] 500 mg PO DAILY LORazepam [Ativan] 0.25 mg PO TID PRN PRN Reason: Anxiety traMADol HCl [Ultram] 50 mg PO TID PRN PRN Reason: Pain Famotidine 20 mg PO QAM EPINEPHrine (Auto Inject) [Epipen] 0.3 mg IM ONCE PRN PRN Reason: Anaphylaxis Cetirizine HCl [Zyrtec] 10 mg PO HS Dicyclomine [Bentyl] 10 mg PO TID PRN PRN Reason: diverticulitis Albuterol Sulfate [Proair Hfa] 2 puff INHALATION RT-QID PRN PRN Reason: Shortness Of Breath Aspirin EC [Ecotrin Low Dose] 81 mg PO HS Azelastine HCl [Astepro] 1 spray EA NOSTRIL BID PRN PRN Reason: Allergy Symptoms Docusate [Colace] 100 mg PO HS Estriol Vaginal Compounded Cream 1 applic VAGINAL SUWE Fluconazole [Diflucan] 100 mg PO DAILY PRN PRN Reason: yeast infection w/abx Lisdexamfetamine Dimesylate [Vyvanse] 30 mg PO QAM Loratadine [Claritin] 10 mg PO MOWEFR Minocycline HCl [Minocin] 100 mg PO MOWEFR Psyllium Husk 100% [Metamucil] 6 gm PO HS Discharge Medication List EPINEPHrine (Auto Inject) [Epipen] 0.3 mg IM ONCE PRN 07/14/13 [History] Famotidine 20 mg PO QAM 07/14/13 [History] LORazepam [Ativan] 0.25 mg PO TID PRN 07/14/13 [History] Liothyronine Sodium 25 mcg PO QAM 07/14/13 [History] traMADol HCl [Ultram] 50 mg PO TID PRN 07/14/13 [History] valACYclovir [Valtrex] 500 mg PO DAILY 07/14/13 [History] Cetirizine HCl [Zyrtec] 10 mg PO HS 07/15/13 [History] Albuterol Sulfate [Proair Hfa] 2 puff INHALATION RT-QID PRN 10/23/15 [History] Aspirin EC [Ecotrin Low Dose] 81 mg PO HS 10/23/15 [History] Azelastine HCl [Astepro] 1 spray EA NOSTRIL BID PRN 10/23/15 [History] Dicyclomine [Bentyl] 10 mg PO TID PRN 10/23/15 [History] Docusate [Colace] 100 mg PO HS 10/23/15 [History] Estriol Vaginal Compounded Cream 1 applic VAGINAL SUWE 10/23/15 [History] Fluconazole [Diflucan] 100 mg PO DAILY PRN 10/23/15 [History] Lisdexamfetamine Dimesylate [Vyvanse] 30 mg PO QAM 10/23/15 [History] Loratadine [Claritin] 10 mg PO MOWEFR 10/23/15 [History] Minocycline HCl [Minocin] 100 mg PO MOWEFR 10/23/15 [History] Psyllium Husk 100% [Metamucil] 6 gm PO HS 10/23/15 [History] Follow up Appointment(s)/Referral(s): Nonstaff,Physician [Primary Care Provider] - 1-2 days Activity/Diet/Wound Care/Special Instructions: client does not need telemetry at [facility] Discharge Disposition: OTHER INSTITUTION NOT DEFINED
[2017-08-30] MEDS ORDERED: LIOTHYRONINE SODIUM 5 MCG TAB PO SCH (06:30)
[2017-08-30] MEDS ORDERED: cefTRIAXone IN SWFI 2,000 MG/20 ML SYRINGE IVP SCH (09:00)
[2017-08-30] MEDS ORDERED: FAMOTIDINE 20 MG TAB PO SCH (09:00)
[2017-08-30] MEDS ORDERED: valACYclovir 500 MG TAB PO SCH (09:00)
[2017-08-30] MEDS ORDERED: Lisdexamfetamine Dimesylate [Vyvanse] 30 MG PO SCH (09:00)
== END 2017-08-29 18:25 | disposition short-term general hospital (02) | DRG 392 ==
LOC: EC 06:44 → 4MS4W 10:56
PROVIDERS: ADMIT Hospitalist; ATTEND Hospitalist
DX: K57.32 Diverticulitis of large intestine without perforation or abscess without bleeding (principal); A69.20 Lyme disease, unspecified; F41.9 Anxiety disorder, unspecified; F32.9 Major depressive disorder, single episode, unspecified; E89.0 Postprocedural hypothyroidism; D72.829 Elevated white blood cell count, unspecified; M06.9 Rheumatoid arthritis, unspecified; G62.9 Polyneuropathy, unspecified; Z95.0 Presence of cardiac pacemaker; G89.29 Other chronic pain; Z79.82 Long term (current) use of aspirin; Z79.899 Other long term (current) drug therapy; Z88.8 Allergy status to other drugs, medicaments and biological substances; Z90.49 Acquired absence of other specified parts of digestive tract; Z86.010 Personal history of colon polyps; Z96.29 Presence of other otological and audiological implants; Z86.79 Personal history of other diseases of the circulatory system; Z80.7 Family history of other malignant neoplasms of lymphoid, hematopoietic and related tissues; Z82.3 Family history of stroke; Z84.2 Family history of other diseases of the genitourinary system
CPT/HCPCS: 36415; 74177; 80053; 81001; 82150; 83690; 85025; 86140; 93005; 96365; 96366; 96368; 96375; 99285

== ENCOUNTER → 2017-10-15 | Outpatient (CLI) | payer MEDICARE, BC ==
--- NOTE | 2017-10-21 17:20 | MM ---
Reason for exam: screening (asymptomatic). Last mammogram was performed 1 year and 1 month ago. History: Patient is postmenopausal and is nulliparous. Family history of breast cancer in 2 maternal aunts at age 80. Benign excisional biopsy of the left breast, 1995. Took hormonal contraceptives for 21 years 10 months. Taking estrogen beginning at age 47. MG 3D Screening Mammo W/Cad Bilateral CC and MLO view(s) were taken. Prior study comparison: September 16, 2016, bilateral MG 3d screening mammo w/cad. March 30, 2014, bilateral MG screening mammo w CAD. There are scattered fibroglandular densities. No suspicious abnormality. Post operative changes on the left breast. ASSESSMENT: Benign, BI-RAD 2 RECOMMENDATION: Routine screening mammogram of both breasts in 1 year.
== END | disposition home or self-care (01) ==
LOC: RADMAMWWP 13:26
PROVIDERS: ATTEND Family Medicine
DX: Z12.31 Encounter for screening mammogram for malignant neoplasm of breast (principal)
CPT/HCPCS: 77063; 77067

== ENCOUNTER → 2018-08-28 | Outpatient (CLI) | payer MEDICARE, BC ==
--- NOTE | 2018-08-28 09:57 | US ---
EXAMINATION TYPE: US abdomen APPY DATE OF EXAM: 08/28/2018 COMPARISON: NONE CLINICAL HISTORY: R19.09 Anterior abdominal wall mass. Patient states for the past 3 months she has h ad a large, hard palpable area of swelling in her lower abdomen just left of her belly button, area b ecomes more prominent while she is standing. APPENDIX Appendix not seen with certainty at this time, RLQ appears wnl. Scanned at patient's area of concern (pt standing during exam): no solid mass or fluid collection see n at this time, cannot exclude presence of hernia in this area. IMPRESSION: 1. Although the appendix is not clearly identified there are no secondary sequela of appendicitis as no free fluid is seen nor adenopathy in the right lower quadrant. 2. Protuberant loops of bowel closely oppose the abdominal wall musculature in the area of concern le ft to the umbilicus. Ventral hernia is suspected although not definitively visualized on ultrasound.
== END | disposition home or self-care (01) ==
LOC: RADUSWWP 08:27
PROVIDERS: ATTEND Physician Assistant
DX: R19.09 Other intra-abdominal and pelvic swelling, mass and lump (principal)
CPT/HCPCS: 76705

== ENCOUNTER 2018-12-10 14:45 | Emergency (ER) | payer MEDICARE, BC ==
[2018-12-10 14:57] VITALS: TEMP 98
[2018-12-10] MEDS ORDERED: LORazepam 2 MG/ML INJ IV STA (15:07)
[2018-12-10] MEDS ORDERED: SODIUM CHLORIDE 0.9% 1,000 ML IV STA (15:08)
[2018-12-10 15:42] LABS: Basophils # (A) 0.1 k/uL (0-0.2); Basophils % (A) 1 %; Eosinophils # (A) 0.1 k/uL (0-0.7); Eosinophils % (A) 1 %; HCT 39.3 % (34.0-46.0); HGB 13.5 gm/dL (11.4-16.0); Lymphocytes # (A) 2.2 k/uL (1.0-4.8); Lymphocytes % (A) 25 %; MCH 29.8 pg (25.0-35.0); MCHC 34.3 g/dL (31.0-37.0); Mean Platelet Volume 6.3; Monocytes # (A) 0.5 k/uL (0-1.0); Monocytes % (A) 6 %; Neutrophils # (A) 5.6 k/uL (1.3-7.7); Neutrophils % (A) 64 %; Platelet Count 474 k/uL (150-450); RBC 4.52 m/uL (3.80-5.40); RDW 12.5 % (11.5-15.5); WBC 8.7 k/uL (3.8-10.6)
--- NOTE | 2018-12-10 15:56 | XR ---
EXAMINATION TYPE: XR abdomen acute w cxr DATE OF EXAM: 12/10/2018 COMPARISON: 12/10/2018 HISTORY: Abdominal pain TECHNIQUE: Supine, upright, and left side down lateral decubitus views of the abdomen are obtained. FINDINGS: Cardiac device seen. No overt failure. No pneumothorax or pleural effusion. Lungs are clear . There is a stent seen within the mid abdomen possibly related to previous TIPS procedure area correla te clinically for history of hepatic disease. Arthropathy of the hips. Bowel gas pattern nonspecific no definite obstruction. IMPRESSION: 1. Nonspecific abdomen with no diagnostic evidence of obstruction.
[2018-12-10 15:58] LABS: INR 0.9 (<1.2); Partial Thromboplastin Time 23.2 sec (22.0-30.0); Prothrombin Time 10.1 sec (9.0-12.0)
[2018-12-10 15:59] LABS: Albumin 4.8 g/dL (3.5-5.0); Calcium 10.2 mg/dL (8.4-10.2); Magnesium 1.9 mg/dL (1.6-2.3); Potassium 3.5 mmol/L (3.5-5.1); Total Bilirubin 0.5 mg/dL (0.2-1.3); Total Protein 7.5 g/dL (6.3-8.2)
[2018-12-10 16:43] VITALS: PULSE 80
--- NOTE | 2018-12-10 17:19 | ED ---
General Adult HPI - General Chief complaint: Chest Pain Stated complaint: Chest Pain-post op Time Seen by Provider: 12/10/18 15:07 Source: patient Mode of arrival: ambulatory Limitations: no limitations - History of Present Illness Initial comments: Dictation was produced using [employer] dictation software. please excuse any grammatical, word or spelling errors. Chief Complaint: 58-year-old male presents with chest pain. History of Present Illness: He [id number] female she presents today with chief complaint of chest pain. Patient states she's been very anxious about her current life situation. Patient states she's been having significant personal bowels with neighbors concerning the house on disease parents property. She has been having difficulties with university tutor. Recently she had her house placed on a lien. Patient is very anxious on arrival. She reports that she is very depressed for a myriad of reasons. She lives at home by herself. She does take anxiolytic medications. Patient states she has some mild chest pain. She also complains of some tingling to her hands and feet. Patient is a history of anxiety. She believes that her symptoms are secondary to anxiety however usually it does not get this bad. She states she fell. She is concerned about her recent hernia surgery. It has any abdominal pain. The ROS documented in this emergency department record has been reviewed and confirmed by me. Those systems with pertinent positive or negative responses have been documented in the HPI. All other systems are other negative and/or noncontributory. PHYSICAL EXAM: General Impression: Alert and oriented x3, tearful, crying HEENT: Normocephalic atraumatic, extra-ocular movements intact, pupils equal and reactive to light bilaterally, mucous membranes moist. Cardiovascular: Heart regular rate and rhythm, S1&S2 audible, no murmurs, rubs or gallops Chest: Lungs clear to auscultation bilaterally, no rhonchi, no wheeze, no rales Abdomen: Bowel sounds present, abdomen soft, non-tender, non-distended, no organomegaly Musculoskeletal: Pulses present and equal in all extremities, no peripheral edema Motor: no focal deficits noted Neurological: CN II-XII grossly intact, no focal motor or sensory deficits noted Skin: Intact with no visualized rashes Psych: Tearful ED course: 58yo female with chief complaint of chest pain and anxiety symptoms. Vital signs upon arrival shows heart rate of 105, respiratory 28, rest of vital signs within acceptable limits. Patient is clearly anxious upon initial evaluation. She was given intravenous fluids and anxiolytic medications upon ar rival. Patient observed in emergency department for several hours with improvement of symptoms. EKGs benign showing no findings to suggest ischemia or infarction. Laboratory evaluation obtained. CBC, coag panel, metabolic panel is unremarkable. Cardiac enzymes negative. Patient clear the presentations consistent with anxiety reaction. Patient is agreeable to discharge to follow- up with primary care physician. Patient has anxiolytic medications at home to take when she has another anxiety reaction. Patient understandable agreeable to disposition. EKG interpretation: Ventricular rate I 9, normal sinus rhythm, NV interval 132, care is 80, QTc 433. No NV prolongation, no QTC prolongation, no ST or T-wave changes noted. Overall, this EKG is unremarkable - Related Data Home Medications Medication Instructions Recorded Confirmed Famotidine 20 mg PO QAM 07/14/13 12/10/18 LORazepam [Ativan] 0.25 mg PO QAM PRN 07/14/13 12/10/18 Liothyronine Sodium 25 mcg PO QAM 07/14/13 12/10/18 valACYclovir [Valtrex] 500 mg PO DAILY 07/14/13 12/10/18 Cetirizine HCl [Zyrtec] 10 mg PO HS 07/15/13 12/10/18 Aspirin EC [Ecotrin Low Dose] 81 mg PO HS 10/23/15 12/10/18 Docusate [Colace] 100 mg PO HS 10/23/15 12/10/18 Levothyroxine Sodium [Synthroid] 125 mcg PO DAILY 12/10/18 12/10/18 Naltrexone HCl [Revia] 50 mg PO DAILY 12/10/18 12/10/18 Triamterene-Hctz 37.5-25Mg 1 tab PO DAILY 12/10/18 12/10/18 [Maxzide 37.5-25] Allergies Allergy/AdvReac Type Severity Reaction Status Date / Time levofloxacin [From Levaquin] Allergy Unknown Verified 12/10/18 16:06 Quinolones AdvReac Tendinopath Verified 12/10/18 16:06 y ranitidine [From Zantac] AdvReac Chest Pain Verified 12/10/18 16:06 STEROIDS AdvReac Suppressed Uncoded 12/10/18 16:06 immune system due to lyme disease Review of Systems ROS Statement: Those systems with pertinent positive or pertinent negative responses have been documented in the HPI. ROS Other: All systems not noted in ROS Statement are negative. Past Medical History Past Medical History: Coronary Artery Disease (CAD) Additional Past Medical History / Comment(s): diverticulitis, lyme disease pacem linda ra, depression anxiety, adrenal fatigue myalgias carditis with sinus node dysfunction Neuropathy bilateral hands and bilateral feet and left side of face. History of Any Multi-Drug Resistant Organisms: None Reported Past Surgical History: Breast Surgery, Cholecystectomy, Ear Surgery, Hernia Repair Additional Past Surgical History / Comment(s): pacemaker, stapes implant in left ear , ovarian cyst, abscess in belly button, thyroidectomy, tummy tuck, renal stent left side Past Anesthesia/Blood Transfusion Reactions: Postoperative Nausea & Vomiting (PONV) Past Psychological History: Anxiety, Depression Smoking Status: Never smoker Past Alcohol Use History: Occasional Past Drug Use History: None Reported - Past Family History Father Family Medical History: Cancer, CVA/TIA, Prostate Disorder Additional Family Medical History / Comment(s): Prostate CA, Hip replacement Mother Family Medical History: Cancer Additional Family Medical History / Comment(s): Mother has multiple myeloma and is in hospice care at home. General Exam Limitations: no limitations Course Vital Signs 12/10/18 12/10/18 12/10/18 14:55 15:00 15:30 Temperature 98.0 F Pulse Rate 105 H 97 92 Respiratory 28 H 20 21 Rate Blood Pressure 167/98 155/89 O2 Sat by Pulse 100 100 100 Oximetry 12/10/18 12/10/18 16:00 16:30 Temperature Pulse Rate 82 80 Respiratory 24 26 H Rate Blood Pressure 166/55 143/72 O2 Sat by Pulse 100 100 Oximetry Medical Decision Making - Lab Data Result diagrams: 12/10/18 14:55 12/10/18 14:55 Lab Results 12/10/18 12/10/18 12/10/18 Range/Units 14:55 14:55 14:55 WBC 8.7 (3.8-10.6) k/uL RBC 4.52 (3.80-5.40) m/uL Hgb 13.5 (11.4-16.0) gm/dL Hct 39.3 (34.0-46.0) % MCV 87.0 (80.0-100.0) fL MCH 29.8 (25.0-35.0) pg MCHC 34.3 (31.0-37.0) g/dL RDW 12.5 (11.5-15.5) % Plt Count 474 H (150-450) k/uL Neutrophils % 64 % Lymphocytes % 25 % Monocytes % 6 % Eosinophils % 1 % Basophils % 1 % Neutrophils # 5.6 (1.3-7.7) k/uL Lymphocytes # 2.2 (1.0-4.8) k/uL Monocytes # 0.5 (0-1.0) k/uL Eosinophils # 0.1 (0-0.7) k/uL Basophils # 0.1 (0-0.2) k/uL PT 10.1 (9.0-12.0) sec INR 0.9 (<1.2) APTT 23.2 (22.0-30.0) sec Sodium 141 (137-145) mmol/L Potassium 3.5 (3.5-5.1) mmol/L Chloride 103 (98-107) mmol/L Carbon Dioxide 24 (22-30) mmol/L Anion Gap 14 mmol/L BUN 25 H (7-17) mg/dL Creatinine 1.01 (0.52-1.04) mg/dL Est GFR (CKD-EPI)AfAm 71 (>60 ml/min/1.73 sqM) Est GFR (CKD-EPI)NonAf 61 (>60 ml/min/1.73 sqM) Glucose 101 H (74-99) mg/dL Calcium 10.2 (8.4-10.2) mg/dL Magnesium 1.9 (1.6-2.3) mg/dL Total Bilirubin 0.5 (0.2-1.3) mg/dL AST 27 (14-36) U/L ALT 34 (9-52) U/L Alkaline Phosphatase 106 (38-126) U/L Troponin I (0.000-0.034) ng/mL Total Protein 7.5 (6.3-8.2) g/dL Albumin 4.8 (3.5-5.0) g/dL Lipase 195 (23-300) U/L 12/10/18 Range/Units 14:55 WBC (3.8-10.6) k/uL RBC (3.80-5.40) m/uL Hgb (11.4-16.0) gm/dL Hct (34.0-46.0) % MCV (80.0-100.0) fL MCH (25.0-35.0) pg MCHC (31.0-37.0) g/dL RDW (11.5-15.5) % Plt Count (150-450) k/uL Neutrophils % % Lymphocytes % % Monocytes % % Eosinophils % % Basophils % % Neutrophils # (1.3-7.7) k/uL Lymphocytes # (1.0-4.8) k/uL Monocytes # (0-1.0) k/uL Eosinophils # (0-0.7) k/uL Basophils # (0-0.2) k/uL PT (9.0-12.0) sec INR (<1.2) APTT (22.0-30.0) sec Sodium (137-145) mmol/L Potassium (3.5-5.1) mmol/L Chloride (98-107) mmol/L Carbon Dioxide (22-30) mmol/L Anion Gap mmol/L BUN (7-17) mg/dL Creatinine (0.52-1.04) mg/dL Est GFR (CKD-EPI)AfAm (>60 ml/min/1.73 sqM) Est GFR (CKD-EPI)NonAf (>60 ml/min/1.73 sqM) Glucose (74-99) mg/dL Calcium (8.4-10.2) mg/dL Magnesium (1.6-2.3) mg/dL Total Bilirubin (0.2-1.3) mg/dL AST (14-36) U/L ALT (9-52) U/L Alkaline Phosphatase (38-126) U/L Troponin I <0.012 (0.000-0.034) ng/mL Total Protein (6.3-8.2) g/dL Albumin (3.5-5.0) g/dL Lipase (23-300) U/L Disposition Clinical Impression: Anxiety reaction Disposition: HOME SELF-CARE Condition: Good Instructions (If sedation given, give patient instructions): Anxiolysis in Adults (ED) Is patient prescribed a controlled substance at d/c from ED?: No Referrals: Nonstaff,Physician [Primary Care Provider] - 1-2 days Time of Disposition: 17:18
[2018-12-10 17:44] VITALS: BP 138/76; RESP 23
== END 2018-12-10 17:57 | disposition home or self-care (01) ==
LOC: EC 14:45
DX: F41.1 Generalized anxiety disorder (principal); F32.9 Major depressive disorder, single episode, unspecified; I25.10 Atherosclerotic heart disease of native coronary artery without angina pectoris; Z88.1 Allergy status to other antibiotic agents; Z88.8 Allergy status to other drugs, medicaments and biological substances; Z79.82 Long term (current) use of aspirin; Z79.890 Hormone replacement therapy; Z79.899 Other long term (current) drug therapy; Z63.79 Other stressful life events affecting family and household; Z95.0 Presence of cardiac pacemaker
CPT/HCPCS: 36415; 93005; 80053; 83690; 83735; 84484; 85025; 85610; 85730; 74022; 99285; 96374; 96361; J2060